=== PATIENT | male | born 1950 | race Caucasian/White ===

== ENCOUNTER → 2016-08-17 | Outpatient (REF) ==
[~2016-08-17] MED LIST: AMBIEN 10MG10 MG PO; ATIVAN 0.50.5 MG/TAB PO; CELEXA 20MG20 MG/TAB PO; CIALIS5 MG PO; DESYREL 50MG50 MG PO; DICLOXACILLIN500 MG PO; FLONASE NASAL S16 GM NAS; FLUTICASON0.05 MG/A1 NS; IBU800 M1 PO; IBUPROFEN800 MG PO; INDOCIN 25MG CA25 MG PO; KLONOPIN WAFE0.25 MG PO; KOMBIGLYZE XR 11 TER PO; LAMICTAL ODT100 MG TL; LEVITRA20 MG PO; MOTRIN 800800 MG/TAB PO; MVI PO; NEURONTIN300 MG/CAP PO; NORCO 325 MG-51 TAB PO; NORCO 325 MG-7.1 TAB PO; PERCOCET 325 MG1 TA2 PO; SEREVENT D0.046 MG/A IH; SEREVENT IH; SEROQUEL 2525 MG/TAB PO; SIMVASTATIN20 MG PO; VICODIN 5/5001 UDTAB PO; VIIBRYD20 MG PO; ZITHROMAX Z PA250 MG PO; ZOCOR 20MG20 MG PO
== END ==
LOC: ZMSC 15:11
DX: Z01.89 Encounter for other specified special examinations (principal)

== ENCOUNTER → 2016-09-03 | Outpatient (REF) | LOC: ZMSC 16:35 | DX: Z01.89 Encounter for other specified special examinations (principal) ==

== ENCOUNTER 2017-04-25 09:55 | Emergency (ER) | payer BC, OTHER ==
[~2017-04-25] VITALS: Ht 177.8 cm; Wt 112.7 kg
[~2017-04-25 09:55] MED LIST changes: -NORCO 325 MG-51 TAB PO
[2017-04-25 10:05] VITALS: BP 129/70; TEMP 98.3
[2017-04-25] MEDS ORDERED: NORCO 325 MG-51 TAB PO (11:46)
[2017-04-25 12:20] VITALS: PULSE 80
== END 2017-04-25 12:23 | disposition home or self-care (01) ==
LOC: COL.ER 09:55
DX: M54.5 Low back pain (principal); G89.29 Other chronic pain; E11.9 Type 2 diabetes mellitus without complications; Z79.84 Long term (current) use of oral hypoglycemic drugs
CPT/HCPCS: J1170; J2360

== ENCOUNTER → 2017-11-14 | Outpatient (CLI) | payer MEDICARE, OTHER ==
[~2017-11-14] MED LIST changes: +NORCO 325 MG-51 TAB PO
== END ==
LOC: COL.PUL 10:00
DX: R06.02 Shortness of breath (principal); G47.34 Idiopathic sleep related nonobstructive alveolar hypoventilation; J43.1 Panlobular emphysema

== ENCOUNTER → 2018-02-07 | Outpatient (CLI) | payer MEDICARE, OTHER ==
[2018-02-07 16:28] LABS: SYNOVIAL FL. MONONUCLEAR 2.9 % (0-75); SYNOVIAL FLUID APPEARANCE BLOODY; SYNOVIAL FLUID COLOR RED; SYNOVIAL FLUID RBC 96000 /mm3 (0-0); SYNOVIAL FLUID WBC 95953 /mm3 (200-600)
== END ==
LOC: ZCOL.LAB 16:04
PROVIDERS: Orthopaedic Surgery
DX: M25.511 Pain in right shoulder (principal)

== ENCOUNTER 2018-02-10 10:09 | Day surgery (SDC) | payer MEDICARE, OTHER ==
[2018-02-10] VITALS (9 sets, daily range): BP systolic 114–129; BP diastolic 68–88; PULSE 78–83; TEMP 97.8–98.5
[~2018-02-10] VITALS: Ht 177.8 cm; Wt 108.2 kg
[2018-02-10] MEDS ORDERED: NORCO 325 MG-101 TAB PO (12:09)
[2018-02-10] MEDS ORDERED: LOTRISONE 0.05%1 CRE TOP (12:10)
[2018-02-10] MEDS ORDERED: NEURONTIN300 MG/CAP PO (12:11)
[2018-02-10] MEDS ORDERED: FLONASEALLERGY NS (12:11)
[2018-02-10] MEDS ORDERED: ATIVAN 0.50.5 MG/TAB PO (12:13)
[2018-02-10] MEDS ORDERED: GLUCOPHAGE1000 MG PO (12:14)
[2018-02-10] MEDS ORDERED: SEROQUEL 2525 MG/TAB PO (12:16)
[2018-02-10] MEDS ORDERED: SEREVENT IH (12:17)
[2018-02-10] MEDS ORDERED: ZOCOR 20MG20 MG PO (12:18)
[2018-02-10] MEDS ORDERED: DESYREL 50MG50 MG PO (12:19)
[2018-02-10] MEDS ORDERED: CIALIS5 MG (12:19)
[2018-02-10] MEDS ORDERED: VIIBRYD40 MG PO (12:20)
[2018-02-10 12:54] LABS: HEMATOCRIT 47.8 % (42.0-52.0); HEMOGLOBIN 15.5 g/dl (13.5-18.0); MEAN CELL VOLUME 92 fl (80.0-100.0); MEAN CORPUSCULAR HEMOGLOBIN 30 pg (27.0-31.0); MEAN CORPUSCULAR HGB CONC 32 g/dl (33.0-37.0); MEAN PLATELET VOLUME 9.9 fl (7.4-10.4); PLATELET COUNT 192 K/mm3 (130-400); REDCELL DISTRIBUTION WIDTH-CV 13.6 % (11.5-14.5)
[2018-02-10 13:05] LABS: C-REACTIVE PROTEIN 8.6 mg/dL (0.0-0.9); CALCIUM 9.4 mg/dL (8.4-10.2); CREATININE, serum 1.75 mg/dL (0.66-1.25); POTASSIUM 4.6 mmol/L (3.4-5.0)
[2018-02-10 13:17] LABS: ERYTHROCYTE SEDIMENTATION RATE 18 mm/hr (0-30)
[2018-02-11 00:02] VITALS: BP 110/50; PULSE 82; TEMP 98.6
[2018-02-11 03:41] VITALS: BP 113/65; PULSE 55; TEMP 98.6
[2018-02-11 07:35] VITALS: BP 116/59; PULSE 74; TEMP 97.9
[2018-02-11 12:00] VITALS: BP 141/77; PULSE 78; TEMP 98.3
== END 2018-02-11 16:37 | disposition home or self-care (01) ==
LOC: SDCO 10:09 → MEDICAL 15:48 → SDCO 02-11 16:37
PROVIDERS: Orthopaedic Surgery
DX: M65.811 Other synovitis and tenosynovitis, right shoulder (principal); M19.90 Unspecified osteoarthritis, unspecified site; F32.9 Major depressive disorder, single episode, unspecified; E11.9 Type 2 diabetes mellitus without complications; E78.00 Pure hypercholesterolemia, unspecified; J44.9 Chronic obstructive pulmonary disease, unspecified; G89.29 Other chronic pain; F41.9 Anxiety disorder, unspecified; S46.011A Strain of muscle(s) and tendon(s) of the rotator cuff of right shoulder, initial encounter; Z79.84 Long term (current) use of oral hypoglycemic drugs; Z79.52 Long term (current) use of systemic steroids; Z90.5 Acquired absence of kidney; Z87.891 Personal history of nicotine dependence
CPT/HCPCS: OP; A4565; C1751; J0690; J0696; J1100; J1885; J2405; J2704; J3010; J3370; J7042; J7050

== ENCOUNTER 2018-03-17 12:54 | Outpatient (CLI) | payer MEDICARE, OTHER ==
[~2018-03-17] VITALS: Ht 177.8 cm; Wt 114.5 kg
[~2018-03-17 12:54] MED LIST changes: +CIALIS5 MG; +FLONASEALLERGY NS; +GLUCOPHAGE1000 MG PO; +LOTRISONE 0.05%1 CRE TOP; +NORCO 325 MG-101 TAB PO; +VIIBRYD40 MG PO
[2018-03-17 13:10] VITALS: BP 125/80; PULSE 68
== END 2018-03-17 16:32 | disposition home or self-care (01) ==
LOC: EUO 12:54
DX: B99.9 Unspecified infectious disease (principal)

== ENCOUNTER 2018-11-02 03:22 | Inpatient (IN) | payer MEDICARE, OTHER ==
[2018-11-02] VITALS (13 sets, daily range): BP systolic 117–163; BP diastolic 66–89; PULSE 64–83; TEMP 97.3–98.4
[~2018-11-02] VITALS: Ht 177.8 cm; Wt 98.4 kg
[~2018-11-02 03:22] MED LIST changes: -CIALIS5 MG
[2018-11-02 03:50] LABS: COLLECTION METHOD CLEAN CATCH
[2018-11-02 03:53] LABS: BASO % 0.3 % (0.0-2.0); EOS # 0.1 (0.0-0.7); GRAN # 6.7 (1.4-6.5); GRAN % 75.5 % (42.2-75.2); HEMATOCRIT 55.5 % (42.0-52.0); LYMPH # 1.4 (1.2-3.4); LYMPH % 15.3 % (20.0-51.0); MEAN CELL VOLUME 92 fl (80.0-100.0); MEAN CORPUSCULAR HEMOGLOBIN 30 pg (27.0-31.0); MEAN CORPUSCULAR HGB CONC 32 g/dl (33.0-37.0); MEAN PLATELET VOLUME 9.5 fl (7.4-10.4); MONO # 0.7 (0.1-0.6); MONO % 7.7 % (1.7-9.3); PLATELET COUNT 144 K/mm3 (130-400); RED BLOOD COUNT 6.02 M/mm3 (4.20-5.60); REDCELL DISTRIBUTION WIDTH-CV 14.1 % (11.5-14.5)
[2018-11-02 03:59] LABS: MUCOUS Present /lpf; PH 5 (5-8); SQUAMOUS EPITHELIAL None Seen /hpf; URINE APPEARANCE Hazy; URINE BACTERIA Moderate /hpf; URINE BILIRUBIN Negative (NEGATIVE); URINE BLOOD 3+ (NEGATIVE); URINE COLOR Yellow; URINE GLUCOSE 2+ (NEGATIVE); URINE KETONE Negative (NEGATIVE); URINE LEUKOCYTE ESTERASE Trace (NEGATIVE); URINE NITRATE Negative (NEGATIVE); URINE PROTEIN(semi-quant) 2+ (NEGATIVE); URINE RBC >50 /hpf; URINE UROBILINOGEN Negative (NEGATIVE); URINE WBC None Seen /hpf
[2018-11-02 04:03] LABS: ALBUMIN 3.7 gm/dL (3.5-5.0); BILIRUBIN,TOTAL 0.8 mg/dL (0.0-1.0); CALCIUM 10.2 mg/dL (8.4-10.2); CREATININE, serum 3.36 (0.66-1.25); POTASSIUM 4.6 mmol/L (3.4-5.0); TOTAL PROTEIN 6.6 gm/dL (6.4-8.2)
[2018-11-02] MEDS ORDERED: GLUCOPHAGE XR500 M1 PO (04:38)
[2018-11-02] MEDS ORDERED: LAMISIL250 M1 (04:40)
--- NOTE | 2018-11-02 06:20 | NUR ---
Arrived per stretcher from ER. Accompanied by ER staff.
--- NOTE | 2018-11-02 10:44 | NUR ---
Patient CONTROL SYSTEMS ENG set up this am with Cecilia RN at bedside shift report. Patient wanting to get rest. His at bedside. Patient now sitting up at edge of bed. Assessment & medrec completed. Consent obtained & patient given education regaurding Stent placement. Patient blood sugar taken, I reviewed with him why he is not receiving his metformin at this time with elevated kideny function. Patient going to shower to pre for OR this afternoon, He remains NPO & educated why
--- NOTE | 2018-11-02 11:49 | NUR ---
FREDI and SW student met with the patient and patient's , Valeri, to discuss discharge plan. The patient lives in [place] with his . He reports independence with ADLs and does not use any DME. The patient's PCP is Dr. Cipriano Last and he receives his medications on [facility]. He reports no difficulties obtaining his meds. The patient does not have advanced directives, but he was interested in obtaining a form for DPOA-HC. SW provided. The patient plans to return home with his upon discharge. No additional needs at this time.
--- NOTE | 2018-11-02 13:07 | NUR ---
Patient to OR with Harriett. Patient prepped with pepcid & LR to gravity. Dangelo drained 150mls.
--- NOTE | 2018-11-02 15:36 | NUR ---
Patient has resturned Post op. He denies pain. Food ordered. aware of plan of care, He will DC home with blanka liang & recheck kidney function in am
--- NOTE | 2018-11-02 17:40 | NUR ---
Patient standing in room, watching TV. Vss on O2. He has tolerated diet, I encouraged water intake over Pepsi intake. Dangelo to DD, urine output has increased. Urine pink tinged. IVF continue post op. His remains at bedside
--- NOTE | 2018-11-02 18:54 | NUR ---
Patient standing watching TV. Denies needs. Bedside report to Cecilia RN
--- NOTE | 2018-11-02 21:22 | NUR ---
Patient standing at bedside, reports he sat in a "squad car" for years and prefers to be out of the bed until he is ready to go to sleep. Asks for Metformin since his blood sugar is elevated. Explained Insulin coverage until the morning after lab work is done, checking his kidney function. Pt grumbles but takes the insulin. Dangelo to BSD with yellow urine draining. SL to right forearm without redness or swelling. Denies need for pain med at this time, does report he will take a pain pill in the morning for his back pain.
--- NOTE | 2018-11-02 22:35 | NUR ---
Patient asking for pain meds for his back. Medicated with Percocet 5/325mg 2 tabs at this time.
[2018-11-03 03:35] VITALS: BP 84/34; PULSE 56; TEMP 98.3
[2018-11-03 04:43] VITALS: BP 106/50; PULSE 57
--- NOTE | 2018-11-03 04:44 | NUR ---
Patient had low B/P reading, recheck by this nurse reveals b/p 106/50 P=57. Has 2300cc of urine output this shift.
[2018-11-03 07:05] LABS: CALCIUM 9.6 mg/dL (8.4-10.2); CREATININE, serum 3.12 (0.66-1.25); POTASSIUM 4.7 mmol/L (3.4-5.0)
[2018-11-03 07:33] VITALS: BP 119/57; PULSE 71; TEMP 97.7
--- NOTE | 2018-11-03 08:30 | NUR ---
PATIENT AMBULATING INDEPENDENTLY WITHIN ROOM UPON ENTRY WITH TELEVISION ON. PATIENT IS A&O. VSS. BOWEL SOUNDS ACTIVE ALL FOUR QUADRANTS. PATIENT TOLERATING DIET WITHOUT COMPLAINTS OF N/V. ABDOMEN IS ROUNDED AND SOFT TO PALPATION. POSITIVE PEDAL PULSES EQUAL BILATERALLY. 1+ PITTING-EDEMA TO FEET BILATERALLY. INT TO RIGHT FOREARM. PATIENT EDUCATED ON COLEMAN CATHETER REMOVAL. PATIENT DENIES ANY NEEDS AT THIS TIME. WILL CONTINUE TO MONITOR.
--- NOTE | 2018-11-03 08:56 | NUR ---
Pts catheter d/c and taken out at 0800. Pt tolerated it well and is up ambulating in pt room
[2018-11-03 11:46] VITALS: BP 122/69; PULSE 80; TEMP 97.8
--- NOTE | 2018-11-03 12:34 | NUR ---
PATIENT'S RIGHT FOREARM INT DC'D BY APARTMENT LEASING CONSULTANT. DISCHARGE INSTRUCTIONS REVIEWED WITH PATIENT AND . ALL QUESTIONS ANSWERED. PATIENT PERSONAL BELONGINGS GATHERED.
--- NOTE | 2018-11-03 12:54 | NUR ---
Pts IV d/c. Pt up in room ambulating
--- NOTE | 2018-11-03 13:06 | NUR ---
PATIENT AMBULATED TO PERSONAL VEHICLE WITH SURGICAL STAFF. PATIENT DISCHARGED.
[2018-11-04] MEDS ORDERED: OMNICEF 300MG300 MG PO (12:35)
== END 2018-11-03 13:06 | disposition home or self-care (01) | DRG 660 ==
LOC: COL.ER 03:22 → SURG 05:04
PROVIDERS: Emergency Medicine; ADMIT Urology
PROC: 0T778DZ Dilation of Left Ureter with Intraluminal Device, Via Natural or Artificial Opening Endoscopic (ICD-10-PCS; principal; 2018-11-02 14:30)
PROC: BT1FZZZ Fluoroscopy of Left Kidney, Ureter and Bladder (ICD-10-PCS; 2018-11-02 14:30)
DX: N20.1 Calculus of ureter (principal); N17.9 Acute kidney failure, unspecified; Z90.5 Acquired absence of kidney; N18.9 Chronic kidney disease, unspecified; Z85.51 Personal history of malignant neoplasm of bladder; I12.9 Hypertensive chronic kidney disease with stage 1 through stage 4 chronic kidney disease, or unspecified chronic kidney disease; E11.22 Type 2 diabetes mellitus with diabetic chronic kidney disease; Z87.891 Personal history of nicotine dependence
CPT/HCPCS: C1769; C2617; J0690; J1100; J1815; J2270; J2405; J2704; J3010; J7030; J7120; Q9967

== ENCOUNTER 2018-11-04 10:56 | Emergency (ER) | payer MEDICARE, OTHER ==
[~2018-11-04] VITALS: Ht 177.8 cm; Wt 113.6 kg
[~2018-11-04 10:56] MED LIST changes: +GLUCOPHAGE XR500 M1 PO; +LAMISIL250 M1
[2018-11-04 11:04] VITALS: TEMP 97.1
[2018-11-04 11:59] LABS: BASO % 0.4 % (0.0-2.0); EOS # 0.1 (0.0-0.7); EOS % 0.7 % (0-4.0); GRAN # 6.2 (1.4-6.5); GRAN % 76.3 % (42.2-75.2); LYMPH # 1.1 (1.2-3.4); LYMPH % 13.7 % (20.0-51.0); MEAN CELL VOLUME 92 fl (80.0-100.0); MEAN CORPUSCULAR HEMOGLOBIN 31 pg (27.0-31.0); MEAN CORPUSCULAR HGB CONC 33 g/dl (33.0-37.0); MEAN PLATELET VOLUME 10.2 fl (7.4-10.4); MONO # 0.7 (0.1-0.6); MONO % 8.7 % (1.7-9.3); PLATELET COUNT 142 K/mm3 (130-400); RED BLOOD COUNT 5.91 M/mm3 (4.20-5.60); REDCELL DISTRIBUTION WIDTH-CV 14.1 % (11.5-14.5)
[2018-11-04 12:00] LABS: HEMATOCRIT 54.6 % (42.0-52.0)
[2018-11-04 12:11] LABS: CALCIUM 9.8 mg/dL (8.4-10.2); CREATININE, serum 2.1 (0.66-1.25); POTASSIUM 4.3 mmol/L (3.4-5.0)
[2018-11-04] MEDS ORDERED: OMNICEF 300MG300 MG PO (12:35)
[2018-11-04 12:40] LABS: COLLECTION METHOD CATHETER
[2018-11-04 12:58] LABS: MUCOUS Present /lpf; SQUAMOUS EPITHELIAL 0-2 /hpf; URINE BACTERIA None Seen /hpf; URINE RBC >50 /hpf
[2018-11-04 13:05] LABS: PH 5 (5-8); URINE APPEARANCE Clear; URINE BILIRUBIN Negative (NEGATIVE); URINE BLOOD 3+ (NEGATIVE); URINE COLOR Amber; URINE GLUCOSE 1+ (NEGATIVE); URINE KETONE Negative (NEGATIVE); URINE LEUKOCYTE ESTERASE Negative (NEGATIVE); URINE NITRATE Positive (NEGATIVE); URINE PROTEIN(semi-quant) 1+ (NEGATIVE)
[2018-11-04 13:23] VITALS: BP 132/79; PULSE 72
== END 2018-11-04 13:40 | disposition home or self-care (01) ==
LOC: COL.ER 10:56
PROVIDERS: Emergency Medicine
DX: N20.0 Calculus of kidney (principal); I10 Essential (primary) hypertension; E11.9 Type 2 diabetes mellitus without complications; Z79.51 Long term (current) use of inhaled steroids; Z87.891 Personal history of nicotine dependence; Z79.84 Long term (current) use of oral hypoglycemic drugs
CPT/HCPCS: J2270; J7030

== ENCOUNTER 2018-11-10 05:36 | Day surgery (SDC) | payer MEDICARE, OTHER ==
[2018-11-10] VITALS (7 sets, daily range): BP systolic 127–145; BP diastolic 63–84; PULSE 70–82; TEMP 98.1–98.4
[~2018-11-10] VITALS: Ht 177.8 cm; Wt 110.5 kg
[~2018-11-10 05:36] MED LIST changes: +OMNICEF 300MG300 MG PO
--- NOTE | 2018-11-10 09:00 | NUR ---
Returns to room 7 per cart from PACU and is awake and alert. Temp 98.5 and room air sats 93% on 2L per nasal cannula. Patient is drinking water and denies pain or nausea. IV fluids infusing and siderails up x2. Call light in reach. Spouse in room.
--- NOTE | 2018-11-10 09:15 | NUR ---
Patient is wanting to sit up on edge of cart. Oxygen removed and siderail down. Denies nausea or feeling light headed or dizzy.
--- NOTE | 2018-11-10 09:30 | NUR ---
IV converted to INT. Eating muffin and drinking water and juice. Has attempted to void per urinal in the room and no urine.
--- NOTE | 2018-11-10 09:40 | NUR ---
Bladder scan done with 263 recorded. Patient has been up walking around in the room.
--- NOTE | 2018-11-10 09:45 | NUR ---
Continues to sip on water and juice. Has eaten second muffin.
--- NOTE | 2018-11-10 10:00 | NUR ---
States that he has ambulated to the bathroom x2 and has not been able to void. Does not feel uncomfortable. Will continue to monitor. Sitting on the edge of the cart.
--- NOTE | 2018-11-10 11:00 | NUR ---
Resting on cart. Denies urge to urinate. Denies pain or nausea. Will continue to monitor. States that he wants one more hour to attmept to urinate then may replace moscoso catheter if needed.
--- NOTE | 2018-11-10 11:40 | NUR ---
Patient states that he has been unable to urinate and wishes to have catheter placed and go home. Bladder scan done and shows 550ml of urine. Informed the patient that Dr. Lara will be notified and will proceed when orders received.
--- NOTE | 2018-11-10 12:00 | NUR ---
Orders received from Dr. Lara and the patient has the option to be taught straight cath or may have moscoso catheter placed. Patient is agreeing to learn straight cath and do this at home.
--- NOTE | 2018-11-10 12:20 | NUR ---
#16 straight catheter done with 600cc's dark indra urine return and noted two small clots. Patient and spouse both verbalize understanding of doing this at home after observing and provided 3 #16 straight cath's, graduate and urinal to measure urine, lubricant and written handout with instructions. Both read instructions and verbalize undestanding of this. Instructed to clean the catheters with soap and water after each use and wash tip of penis with soap and water prior to catheterization.
--- NOTE | 2018-11-10 12:40 | NUR ---
INT needle discontinued and given dismissal instructions. Voices understanding of home and to call Dr. Lara's office in needed or come to the emergency room. Provided office number for questions and concerns.
--- NOTE | 2018-11-10 12:43 | NUR ---
Patient dismissed to home driven by spouse per private vehicle and taken to the front door per wheelchair and assisted into car with instructions in hand.
== END 2018-11-10 12:43 | disposition home or self-care (01) ==
LOC: SDCO 05:36
DX: N20.1 Calculus of ureter (principal); I12.9 Hypertensive chronic kidney disease with stage 1 through stage 4 chronic kidney disease, or unspecified chronic kidney disease; E11.22 Type 2 diabetes mellitus with diabetic chronic kidney disease; N18.9 Chronic kidney disease, unspecified; F32.9 Major depressive disorder, single episode, unspecified; G47.00 Insomnia, unspecified; E23.0 Hypopituitarism; Z90.5 Acquired absence of kidney; J44.9 Chronic obstructive pulmonary disease, unspecified; F41.9 Anxiety disorder, unspecified; G89.29 Other chronic pain; M19.90 Unspecified osteoarthritis, unspecified site; Z85.528 Personal history of other malignant neoplasm of kidney; Z87.891 Personal history of nicotine dependence; Z79.84 Long term (current) use of oral hypoglycemic drugs; Z79.51 Long term (current) use of inhaled steroids
CPT/HCPCS: C1769; C2617; J0690; J2704; J3010; J7030

== ENCOUNTER 2018-11-11 11:52 | Emergency (ER) | payer MEDICARE, OTHER ==
[~2018-11-11] VITALS: Ht 177.8 cm; Wt 111.4 kg
[2018-11-11 11:57] VITALS: TEMP 98.5
[2018-11-11 12:48] LABS: COLLECTION METHOD CATHETER
[2018-11-11 12:55] LABS: MUCOUS Present /lpf; PH 5 (5-8); SQUAMOUS EPITHELIAL None Seen /hpf; URINE APPEARANCE Clear; URINE BACTERIA None Seen /hpf; URINE BILIRUBIN Negative (NEGATIVE); URINE BLOOD 2+ (NEGATIVE); URINE COLOR Yellow; URINE GLUCOSE 3+ (NEGATIVE); URINE KETONE Negative (NEGATIVE); URINE LEUKOCYTE ESTERASE Negative (NEGATIVE); URINE NITRATE Negative (NEGATIVE); URINE PROTEIN(semi-quant) 1+ (NEGATIVE); URINE UROBILINOGEN Negative (NEGATIVE)
[2018-11-11 13:58] VITALS: BP 132/85; PULSE 77
== END 2018-11-11 13:59 | disposition home or self-care (01) ==
LOC: COL.ER 11:52
PROVIDERS: Physician Assistant
DX: R33.9 Retention of urine, unspecified (principal); I10 Essential (primary) hypertension; F41.9 Anxiety disorder, unspecified; E11.42 Type 2 diabetes mellitus with diabetic polyneuropathy; Z96.0 Presence of urogenital implants; Z85.528 Personal history of other malignant neoplasm of kidney; Z87.891 Personal history of nicotine dependence; Z98.890 Other specified postprocedural states; Z79.51 Long term (current) use of inhaled steroids; Z79.84 Long term (current) use of oral hypoglycemic drugs

== ENCOUNTER 2019-02-27 07:25 | Inpatient (IN) | payer MEDICARE, OTHER ==
[~2019-02-27] VITALS: Ht 177.8 cm; Wt 113.3 kg
[2019-02-27 08:06] LABS: BASO % 0.3 % (0.0-2.0); EOS # 0.1 (0.0-0.7); EOS % 0.5 % (0-4.0); GRAN # 7.4 (1.4-6.5); GRAN % 80.6 % (42.2-75.2); HEMOGLOBIN 17.5 g/dl (13.5-18.0); LYMPH % 10.4 % (20.0-51.0); MEAN CELL VOLUME 94 fl (80.0-100.0); MEAN CORPUSCULAR HEMOGLOBIN 30 pg (27.0-31.0); MEAN CORPUSCULAR HGB CONC 32 g/dl (33.0-37.0); MEAN PLATELET VOLUME 10.4 fl (7.4-10.4); MONO # 0.7 (0.1-0.6); MONO % 7.9 % (1.7-9.3); PLATELET COUNT 144 K/mm3 (130-400); RED BLOOD COUNT 5.78 M/mm3 (4.20-5.60); REDCELL DISTRIBUTION WIDTH-CV 15.2 % (11.5-14.5)
[2019-02-27 08:07] LABS: HEMATOCRIT 54.4 % (42.0-52.0)
[2019-02-27 08:16] LABS: C-REACTIVE PROTEIN 1.7 mg/dL (0.0-0.9); CALCIUM 9.3 mg/dL (8.4-10.2); CREATININE, serum 1.85 (0.66-1.25); POTASSIUM 4.7 mmol/L (3.4-5.0)
[2019-02-27 08:26] LABS: ERYTHROCYTE SEDIMENTATION RATE 1 mm/hr (0-30)
[2019-02-27] MEDS ORDERED: DESYREL 50MG50 MG PO (08:26)
[2019-02-27 09:12] LABS: SYNOVIAL FL. MONONUCLEAR 4.9 % (0-75); SYNOVIAL FLUID APPEARANCE HAZY; SYNOVIAL FLUID COLOR YELLOW; SYNOVIAL FLUID RBC 3000 /mm3 (0-0); SYNOVIAL FLUID WBC 105055 /mm3 (200-600)
--- NOTE | 2019-02-27 11:22 | NUR ---
Patient arrives to medical room 314 via ED cart. Prior report recieved from STEVE Bennett. Patient transferred to bed and kept on 2L per [place]. Dr. Mayorga notified of patient arrival. Assessment and vitals as charted. Care assumed.
--- NOTE | 2019-02-27 11:40 | NUR ---
Dr. Mayorga rounds at this time. Orders as entered CPOE.
[2019-02-27 11:43] VITALS: BP 125/81; PULSE 76; TEMP 98.8
[2019-02-27] MEDS ORDERED: LAMISIL250 M1 PO (11:51)
[2019-02-27] MEDS ORDERED: VIIBRYD20 MG PO (11:51)
[2019-02-27] MEDS ORDERED: MUCINEX1200 MG PO (11:52)
[2019-02-27] MEDS ORDERED: 00186-0370-20 IH (11:52)
[2019-02-27] MEDS ORDERED: PREVIDENT5000PLUS DT (11:53)
[2019-02-27 12:04] LABS: ALBUMIN 3.9 gm/dL (3.5-5.0); BILIRUBIN UNCONJUGATED 0.7 mg/dL (0.0-1.1); BILIRUBIN,DIRECT 0.2 mg/dL (0.0-0.4)
[2019-02-27 15:58] VITALS: BP 124/76; PULSE 74; TEMP 98.3
--- NOTE | 2019-02-27 16:07 | NUR ---
Patient consistently rates pain 8-10/10 despite sleeping between disturbances. Patient falls asleep mid conversation but wakes with verbal stimulation. Care ongoing.
[2019-02-27 19:25] VITALS: BP 136/77; PULSE 79; TEMP 99.7
--- NOTE | 2019-02-27 19:57 | NUR ---
Resting in bed. assessment complete. Lungs clear. Heart sounds normal. Bowels active x4. Pulses strong throughout. No edema noted. Left ankle swelling present. Reports 7/10 pain currently. Recently received norco. INT right forearm without complications. Denies needs at this time. Call light in reach.
--- NOTE | 2019-02-27 21:50 | NUR ---
Resting in bed. Denies pain at this time. called. Updated patient on patient this evening. Patient sleeping, received x1 dose of norco. denies other questions.
[2019-02-27 23:12] VITALS: BP 125/86; PULSE 75; TEMP 97.3
[2019-02-28] VITALS (11 sets, daily range): BP systolic 106–131; BP diastolic 47–77; PULSE 74–96; TEMP 97.2–99.4
--- NOTE | 2019-02-28 00:01 | NUR ---
Resting in bed. Denies pain at this time. Denies needs. Call light in reach.
--- NOTE | 2019-02-28 02:47 | NUR ---
Rating pain 9/10. Provided with PRN norco and ice. Able to move with difficulty. Denies needs at this time. Call light in reach.
--- NOTE | 2019-02-28 05:39 | NUR ---
Patient required x2 doses of norco throughout night for left ankle pain. Otherwise uneventful. Patient slept well with ice and elevation on left ankle. Resting this AM. Call light in reach.
[2019-02-28 06:11] LABS: BASO % 0.3 % (0.0-2.0); EOS # 0.1 (0.0-0.7); EOS % 0.7 % (0-4.0); GRAN % 75.2 % (42.2-75.2); HEMATOCRIT 51.8 % (42.0-52.0); HEMOGLOBIN 16.2 g/dl (13.5-18.0); LYMPH # 0.9 (1.2-3.4); LYMPH % 13.9 % (20.0-51.0); MEAN CELL VOLUME 97 fl (80.0-100.0); MEAN CORPUSCULAR HEMOGLOBIN 30 pg (27.0-31.0); MEAN CORPUSCULAR HGB CONC 31 g/dl (33.0-37.0); MEAN PLATELET VOLUME 10.5 fl (7.4-10.4); MONO # 0.6 (0.1-0.6); MONO % 9.3 % (1.7-9.3); PLATELET COUNT 124 K/mm3 (130-400); RED BLOOD COUNT 5.33 M/mm3 (4.20-5.60); REDCELL DISTRIBUTION WIDTH-CV 15.3 % (11.5-14.5)
[2019-02-28 06:27] LABS: CALCIUM 9.2 mg/dL (8.4-10.2); CREATININE, serum 1.93 (0.66-1.25); POTASSIUM 4.8 mmol/L (3.4-5.0)
--- NOTE | 2019-02-28 06:32 | NUR ---
INT right forearm leaking, changed to another area on right forearm. in room. Linens changed, grown changed. Patient unhappy with ortho docs. Stating they need to make a plan and "figure it out." No questions for this nurse. Call light in reach.
--- NOTE | 2019-02-28 07:09 | NUR ---
Report given to STEVE Rivera
--- NOTE | 2019-02-28 10:00 | NUR ---
Patient is upset that Dr Gonzalez has not decided on surgery yet. Explained he stated he would be back this afternoon to decide. Patient is upset about not being able to eat or drink. Explained that he needs to wait because if he eats he will have to wait another day to have surgery. Patient verbalized understanding. No other changes at this time. Call light within reach.
--- NOTE | 2019-02-28 11:59 | NUR ---
Initial visit; Patient anitraggy (he said), but thanked Logistical Engineer for telling him to rest well.
--- NOTE | 2019-02-28 15:52 | NUR ---
SW met with patient to discuss discharge planning. Patient lives independently at home with his . Patient's PCP is Dr Last and he obtains prescriptions from [facility]. Patient is independent with all ADLs and does not use any DME or home health services. Patient was provided a DPOA-HC form. Patient reports he would like to discuss it with his nhung. SW will follow up in the morning.
--- NOTE | 2019-02-28 16:40 | NUR ---
Patient is going down for his procedure. Consent signed and on the chart. He is being taken to OR via the bed. Patients family aware patient is going for his procedure, nobody is with him at this time. No other changes at this time.
--- NOTE | 2019-02-28 19:45 | NUR ---
Arrived to medical floor from PACU. Kera stated patient having apnea with difficulty maintaining O2 saturations. Patient on 8 liters when returned to room. Respiratory in room for breathing treatment. Oxygen decreased to 4 liters. patient mainitaining at 93%. Will monitor closely. Left leg covered with dressing and hunter wrap. Lungs clear. Heart sounds normal. Bowels active. Pulses strong throughout.
--- NOTE | 2019-02-28 21:05 | NUR ---
Patient continues to have apneic episodes greater than 30 seconds. Reminded to breathe. Spoke with PAWEL Baez, placed order for bipap at this time. Will update hospitalist.
[2019-02-28 21:26] LABS: ARTERIAL BLD GAS O2 SATURATION 93.1 % (92-100); ARTERIAL BLD GAS TCO2 CT 29.6; ARTERIAL BLOOD GAS BASE EXCESS -1.1 (-2-2); ARTERIAL BLOOD GAS HCO3 27.7 meq/L (22-26); ARTERIAL BLOOD GAS PCO2 62.6 mmHg (35-45); ARTERIAL BLOOD GAS PO2 75.2 mmHg (80-100); ARTERIAL BLOOD GAS pH 7.26 (7.35-7.45)
--- NOTE | 2019-02-28 21:56 | NUR ---
Patient not tolerating bipap mask well. Cleared with Debra to give patient PRN ativan.
--- NOTE | 2019-02-28 22:30 | NUR ---
patient awake maintaining respirations without difficulty. Refusing bipap at this time. Removed oxygen tubing. Patient at 87% without oxygen on. Educated patient to place nasal cannula on. Patient agreed. Patient on 4 liters nasal cannula.
--- NOTE | 2019-02-28 23:05 | NUR ---
Reports 6/10 left ankle pain. Patient awake and alert. Provided with PRN norco at this time.
--- NOTE | 2019-02-28 23:53 | NUR ---
ZHANE Richardson updated. Added order for ABG, chest xray, and bipap. Patient started on bipap.
--- NOTE | 2019-02-28 23:57 | NUR ---
Patient 94% on 4 liters via nasal cannula while asleep. Maintaining adequate respirations without periods of apnea at this time.
--- NOTE | 2019-03-01 03:18 | NUR ---
Monitored patient closely over last several hours. Patient resting well at this time. Has apneic episodes of about 18 seconds then continues to breathe without reminder. Oxygen saturation drops to 88% and increases to 92% with respiration. Will continue to monitor.
[2019-03-01 03:44] VITALS: BP 116/59; PULSE 84; TEMP 98.4
[2019-03-01 06:06] LABS: ARTERIAL BLD GAS O2 SATURATION 94.2 % (92-100); ARTERIAL BLD GAS TCO2 CT 31.3; ARTERIAL BLOOD GAS BASE EXCESS 1.8 (-2-2); ARTERIAL BLOOD GAS HCO3 29.5 meq/L (22-26); ARTERIAL BLOOD GAS PCO2 58.1 mmHg (35-45); ARTERIAL BLOOD GAS PO2 72.9 mmHg (80-100); ARTERIAL BLOOD GAS pH 7.32 (7.35-7.45)
--- NOTE | 2019-03-01 06:10 | NUR ---
Patient had uneventful rest of night. ABGs done this AM. Resting in bed with at bedside. Call light in reach.
--- NOTE | 2019-03-01 06:58 | NUR ---
Report given to STEVE George
[2019-03-01 07:21] VITALS: BP 122/65; PULSE 82; TEMP 97.9
[2019-03-01 08:52] LABS: BASO % 0.2 % (0.0-2.0); EOS % 0.4 % (0-4.0); GRAN % 75.4 % (42.2-75.2); HEMATOCRIT 51.6 % (42.0-52.0); HEMOGLOBIN 16.3 g/dl (13.5-18.0); LYMPH # 0.8 (1.2-3.4); MEAN CELL VOLUME 96 fl (80.0-100.0); MEAN CORPUSCULAR HEMOGLOBIN 30 pg (27.0-31.0); MEAN CORPUSCULAR HGB CONC 32 g/dl (33.0-37.0); MEAN PLATELET VOLUME 10.3 fl (7.4-10.4); MONO # 0.5 (0.1-0.6); MONO % 8.8 % (1.7-9.3); PLATELET COUNT 133 K/mm3 (130-400); RED BLOOD COUNT 5.37 M/mm3 (4.20-5.60); REDCELL DISTRIBUTION WIDTH-CV 14.9 % (11.5-14.5)
--- NOTE | 2019-03-01 08:55 | NUR ---
Pt sleeping upon entry, easily awakened, no C/O pain at this time, shift assessments complete, left Pt call light in reach, bed in lowest position.
[2019-03-01 09:01] LABS: CREATININE, serum 1.63 (0.66-1.25); POTASSIUM 4.7 mmol/L (3.4-5.0)
--- NOTE | 2019-03-01 09:55 | NUR ---
PT LYING IN BED ON ROOM AIR. STATED HE ONLY WEARS O2 @ NOC. SPO2 87%
[2019-03-01 11:23] VITALS: BP 138/70; PULSE 76; TEMP 97.7
[2019-03-01] MEDS ORDERED: CEPHALEXIN500 M1 PO (11:30)
--- NOTE | 2019-03-01 13:19 | NUR ---
FREDI met with patient about new O2 needs. Patient reports he has O2 through [facility]. FREDI faxed an updated O2 order to [facility]. Patient will discharge later today.
--- NOTE | 2019-03-01 16:19 | NUR ---
Pt discharged to home, escorted to entrance, left with spouse by private auto.
== END 2019-03-01 16:20 | disposition home or self-care (01) | DRG 492 ==
LOC: COL.ER 07:25 → MEDICAL 10:05 → COL.ER 10:45 → MEDICAL 11:50
PROVIDERS: Emergency Medicine; Nurse Practitioner; Orthopaedic Surgery; Physician Assistant; ADMIT Hospitalist
PROC: 3E1U38X Irrigation of Joints using Irrigating Substance, Percutaneous Approach, Diagnostic (ICD-10-PCS; 2019-02-28)
PROC: 0SBG4ZZ Excision of Left Ankle Joint, Percutaneous Endoscopic Approach (ICD-10-PCS; principal; 2019-02-28 16:00)
DX: M00.9 Pyogenic arthritis, unspecified (principal); J96.21 Acute and chronic respiratory failure with hypoxia; M25.472 Effusion, left ankle; M65.872 Other synovitis and tenosynovitis, left ankle and foot; E78.5 Hyperlipidemia, unspecified; N18.3 Chronic kidney disease, stage 3 (moderate); E11.22 Type 2 diabetes mellitus with diabetic chronic kidney disease; Z90.5 Acquired absence of kidney; Z85.528 Personal history of other malignant neoplasm of kidney; G89.29 Other chronic pain; M54.9 Dorsalgia, unspecified; J44.9 Chronic obstructive pulmonary disease, unspecified; Z99.81 Dependence on supplemental oxygen; G47.00 Insomnia, unspecified; F41.8 Other specified anxiety disorders; M13.872 Other specified arthritis, left ankle and foot
CPT/HCPCS: 99222-AI; 99232-AI; 99239; A4216; A9284; J0171; J0690; J0692; J1170; J1644; J1815; J2060; J2270; J2370; J2405; J2704; J3010; J3370; J7030; J7050

== ENCOUNTER → 2020-09-03 | Outpatient (CLI) | payer MEDICARE, OTHER ==
[~2020-09-03] MED LIST changes: +00186-0370-20 IH; +CEPHALEXIN500 M1 PO; +DITROPAN XL10 MG PO; +GLUCOTROL 5M5 MG/TAB PO; +LAMISIL250 M1 PO; +METROGEL1% TOP; +MUCINEX1200 MG PO; +PREVIDENT5000PLUS DT; +ROCEPHIN 2GM VIAL21 IJ; +ROXICODONE 55 MG/TAB PO; +SEPTRA DS 8001 TAB PO; +ULTRAM 50MG TAB50 MG PO
== END ==
LOC: ZCOL.LAB 18:36
DX: Z01.89 Encounter for other specified special examinations (principal)

== ENCOUNTER 2021-10-05 13:56 | Inpatient (IN) | payer MEDICARE, OTHER ==
[~2021-10-05] VITALS: Ht 177.8 cm; Wt 111.6 kg
[2021-10-20] VITALS (10 sets, daily range): BP systolic 100–139; BP diastolic 59–86; PULSE 68–86; TEMP 98–99.1
[2021-10-20] MEDS ORDERED: LAMISIL250 M1 PO (12:04)
[2021-10-20] MEDS ORDERED: ULTRAM 50MG TAB50 MG PO (12:04)
[2021-10-20] MEDS ORDERED: ATIVAN 0.50.5 MG/TAB PO (12:08)
[2021-10-20] MEDS ORDERED: GLUCOPHAGE XR500 M1 PO (12:09)
[2021-10-20] MEDS ORDERED: ROXICODONE 55 MG/TAB PO (12:10)
[2021-10-20 17:52] LABS: BASO % 0.2 % (0.0-2.0); EOS % 0.2 % (0.0-4.0); GRAN # 9.5 K/mm3 (1.4-6.5); GRAN % 89.9 % (42.2-75.2); HEMATOCRIT 47.4 % (42.0-52.0); HEMOGLOBIN 14.4 g/dl (13.5-18.0); LYMPH # 0.6 K/mm3 (1.2-3.4); LYMPH % 5.9 % (20.0-51.0); MEAN CELL VOLUME 88 fl (80.0-100.0); MEAN CORPUSCULAR HEMOGLOBIN 27 pg (27-31); MEAN CORPUSCULAR HGB CONC 30 g/dl (33.0-37.0); MEAN PLATELET VOLUME 10.3 fl (7.4-10.4); MONO # 0.4 K/mm3 (0.1-0.6); MONO % 3.4 % (1.7-9.3); PLATELET COUNT 187 K/mm3 (130-400); RED BLOOD COUNT 5.42 M/mm3 (4.20-5.60); REDCELL DISTRIBUTION WIDTH-CV 16.5 % (11.5-14.5)
[2021-10-20 18:09] LABS: CALCIUM 8.7 mg/dL (8.4-10.2); CREATININE, serum 2.61 mg/dL (0.72-1.25)
[2021-10-20 18:20] LABS: POTASSIUM 5.9 mmol/L (3.5-4.5)
--- NOTE | 2021-10-20 18:59 | NUR ---
Pt. accepted from PACU. is at bedside. Pt. has 6 abdominal incisions. 5 to lower abd. and covered with bandaids - CDI. Incision to RUQ is covered with an airstrip dressing - minimal amount of bloody drainage noted. Dangelo catheter patent to drainage - urine is clear and yellow. Pt. remains on O2 at 6L via oxi-mask. Patient reporting pain. Pt. received diluadid in PACU around 1805. Pt. remains drowsy but arouses easily from sleep
--- NOTE | 2021-10-20 19:10 | NUR ---
RECEIVED CHANGE OF SHIFT REPORT FROM DAY SHIFT RN.
--- NOTE | 2021-10-20 19:15 | NUR ---
SEE MAR FOR PAIN MEDS GIVEN. DENIES NAUSEA.
[2021-10-21] VITALS (7 sets, daily range): BP systolic 97–134; BP diastolic 36–73; PULSE 73–89; TEMP 98–98.6
--- NOTE | 2021-10-21 07:05 | NUR ---
CHANGE OF SHIFT REPORT GIVEN TO DAY SHIFT RNDONATO.
--- NOTE | 2021-10-21 09:15 | NUR ---
SW met with the patient to discuss discharge plan. The patient lives in [place] with his , Valeri (ph#[phone]). He reports independence with ADLs and has a cane and walker. The patient's PCP is Dr. Cpiriano Last and he receives his medications on [place] for any maintence meds and from [facility] for anything that is one time. The patient does not have a DPOA-HC in EMR, but he states that he has the forms and filled out, he just needs to get it notarized. He states that he is designating his . The patient plans on returning home with his upon discharge. No additional needs at this time. *Discharge plan: home with *
--- NOTE | 2021-10-21 09:28 | NUR ---
Initial visit; Patient thanked Scale Shooter for looking in on him and praying with him for a thorough recovery. Patient in pain though feels as if there will be an end to it and he will move on from it.
[2021-10-21 12:28] LABS: BASO % 0.3 % (0.0-2.0); GRAN # 9.4 K/mm3 (1.4-6.5); GRAN % 83.7 % (42.2-75.2); HEMATOCRIT 42.5 % (42.0-52.0); HEMOGLOBIN 12.8 g/dl (13.5-18.0); LYMPH % 8.8 % (20.0-51.0); MEAN CELL VOLUME 88 fl (80.0-100.0); MEAN CORPUSCULAR HEMOGLOBIN 26 pg (27-31); MEAN CORPUSCULAR HGB CONC 30 g/dl (33.0-37.0); MONO # 0.8 K/mm3 (0.1-0.6); MONO % 6.9 % (1.7-9.3); PLATELET COUNT 158 K/mm3 (130-400); RED BLOOD COUNT 4.84 M/mm3 (4.20-5.60); REDCELL DISTRIBUTION WIDTH-CV 16.2 % (11.5-14.5)
[2021-10-21 15:11] LABS: BILIRUBIN,TOTAL 0.6 mg/dL (0.2-1.2); CALCIUM 8.7 mg/dL (8.4-10.2); CREATININE, serum 3.22 mg/dL (0.72-1.25); POTASSIUM 4.4 mmol/L (3.5-4.5); TOTAL PROTEIN 6.4 gm/dL (6.2-8.1)
--- NOTE | 2021-10-21 18:23 | NUR ---
COLEMAN REMOVED AT 1814
--- NOTE | 2021-10-21 19:00 | NUR ---
RECEIVED CHANGE OF SHIFT REPORT FROM DAY SHIFT RN. PATIENT UP IN CHAIR WITH PRESENT DURING REPORT. CALL LIGHT WITHIN REACH. DENIES ANY NEEDS DURING REPORT.
[2021-10-22 03:36] VITALS: BP 107/48; PULSE 84; TEMP 98.8
--- NOTE | 2021-10-22 04:34 | NUR ---
PATIENT UP IN ROOM INDEPENDENTLY, REFUSED SCDs.
[2021-10-22 05:47] LABS: BASO % 0.1 % (0.0-2.0); EOS % 0.1 % (0.0-4.0); GRAN # 7.4 K/mm3 (1.4-6.5); GRAN % 85.4 % (42.2-75.2); LYMPH # 0.8 K/mm3 (1.2-3.4); LYMPH % 8.9 % (20.0-51.0); MEAN CELL VOLUME 87 fl (80.0-100.0); MEAN CORPUSCULAR HEMOGLOBIN 27 pg (27-31); MEAN CORPUSCULAR HGB CONC 31 g/dl (33.0-37.0); MEAN PLATELET VOLUME 10.3 fl (7.4-10.4); MONO # 0.5 K/mm3 (0.1-0.6); MONO % 5.3 % (1.7-9.3); PLATELET COUNT 124 K/mm3 (130-400); RED BLOOD COUNT 4.12 M/mm3 (4.20-5.60); REDCELL DISTRIBUTION WIDTH-CV 16.1 % (11.5-14.5)
[2021-10-22 05:55] LABS: HEMATOCRIT 35.9 % (42.0-52.0)
[2021-10-22 06:01] LABS: CALCIUM 8.4 mg/dL (8.4-10.2); CREATININE, serum 2.87 mg/dL (0.72-1.25); POTASSIUM 4.8 mmol/L (3.5-4.5)
--- NOTE | 2021-10-22 07:16 | NUR ---
CHANGE OF SHIFT REPORT GIVEN TO DAY SHIFT RNLIDYA.
[2021-10-22 07:41] VITALS: BP 126/67; PULSE 99; TEMP 98
--- NOTE | 2021-10-22 10:06 | NUR ---
PT SITTING ON EDGE OF BED, TALKING TO FAMILY ON HIS CELLPHONE. PT STATES THAT HE CONTINUES TO HAVE PAIN IN HIS ABDOMEN, ESPECIALLY WHEN HE COUGHS. PT IS ENCOURAGED TO USE PILLOW TO BRACE AGAINST HIS ABDOMEN, VERBALIZES UNDERSTANDING. PT DENIES NEEDS, CALL LIGHT WITHIN REACH.
--- NOTE | 2021-10-22 10:45 | NUR ---
PT AMBULATING IN HALLS WITH WALKER, REPORTS HAVING HAD A BM.
[2021-10-22 12:27] VITALS: BP 106/67; PULSE 91; TEMP 98.4
--- NOTE | 2021-10-22 12:37 | NUR ---
PT EATING LUNCH IN CHAIR, FAMILY IS IN ROOM. PT STATES THAT ABDOMINAL PAIN HAS INCREASED, ROXICODONE ADMINISTERED. PT DENIES OTHER NEEDS. RESPIRATIONS UNLBAORED. CALL LIGHT WITHIN REACH.
[2021-10-22 15:52] VITALS: BP 116/57; PULSE 76; TEMP 98.4
--- NOTE | 2021-10-22 18:04 | NUR ---
DISCHARGE INSTRUCTIONS ET EDUCATION GIVEN TO PT ET PT'S . BOTH DEMONSTRATE UNDERSTANDING. IV REMOVED FROM LEFT FA, CATHETER TIP INTACT. PT'S LARGE INCISION ON RIGHT UPPER QUADRANT IS OPEN TO AIR, DRESSING REMOVED BY DR. RIVERA. VAMSHI INTACT ET EDGES WELL APPROXIMATED. PT IS ESCORTED OUT VIA WC WITH ET PCT ZEYAD. PT BELONGINGS WITH PT.
== END 2021-10-22 17:40 | disposition home or self-care (01) | DRG 331 ==
LOC: INPTSU 10-20 10:33 → SURG 10-20 10:33
PROVIDERS: ADMIT Surgery
PROC: 8E0W4CZ Robotic Assisted Procedure of Trunk Region, Percutaneous Endoscopic Approach (ICD-10-PCS; 2021-10-20)
PROC: 0DTU0ZZ Resection of Omentum, Open Approach (ICD-10-PCS; 2021-10-20)
PROC: 0DTH0ZZ Resection of Cecum, Open Approach (ICD-10-PCS; 2021-10-20)
PROC: 0DTF4ZZ Resection of Right Large Intestine, Percutaneous Endoscopic Approach (ICD-10-PCS; principal; 2021-10-20 12:30)
DX: K63.89 Other specified diseases of intestine (principal); E78.00 Pure hypercholesterolemia, unspecified; F32.A Depression, unspecified; I12.9 Hypertensive chronic kidney disease with stage 1 through stage 4 chronic kidney disease, or unspecified chronic kidney disease; N18.9 Chronic kidney disease, unspecified; E11.22 Type 2 diabetes mellitus with diabetic chronic kidney disease; G47.00 Insomnia, unspecified; J44.9 Chronic obstructive pulmonary disease, unspecified; Z85.528 Personal history of other malignant neoplasm of kidney; Z99.81 Dependence on supplemental oxygen
CPT/HCPCS: A4314; A9284; J0690; J1100; J1170; J1650; J1815; J1940; J2250; J2405; J2704; J3010; J7030; J7120

== ENCOUNTER 2021-10-25 21:52 | Inpatient (IN) | payer MEDICARE, OTHER ==
[~2021-10-25] VITALS: Ht 177.8 cm; Wt 112.1 kg
[2021-10-25 23:06] LABS: BASO % 0.3 % (0.0-2.0); EOS # 0.1 K/mm3 (0.0-0.7); EOS % 1.1 % (0.0-4.0); GRAN # 7.7 K/mm3 (1.4-6.5); GRAN % 82.4 % (42.2-75.2); HEMOGLOBIN 11.1 g/dl (13.5-18.0); LYMPH # 0.8 K/mm3 (1.2-3.4); LYMPH % 8.3 % (20.0-51.0); MEAN CELL VOLUME 87 fl (80.0-100.0); MEAN CORPUSCULAR HEMOGLOBIN 27 pg (27-31); MEAN CORPUSCULAR HGB CONC 31 g/dl (33.0-37.0); MEAN PLATELET VOLUME 10.4 fl (7.4-10.4); MONO # 0.7 K/mm3 (0.1-0.6); MONO % 7.5 % (1.7-9.3); PLATELET COUNT 204 K/mm3 (130-400); RED BLOOD COUNT 4.16 M/mm3 (4.20-5.60)
[2021-10-25 23:08] LABS: HEMATOCRIT 36.1 % (42.0-52.0)
[2021-10-25 23:15] LABS: INR 1.3 (0.8-3.0); PROTHROMBIN TIME 14.3 SECONDS (9.7-12.8)
[2021-10-25 23:22] LABS: ALBUMIN 2.2 gm/dL (3.4-4.8); BILIRUBIN,TOTAL 0.6 mg/dL (0.2-1.2); CALCIUM 9.3 mg/dL (8.4-10.2); CREATININE, serum 2.14 mg/dL (0.72-1.25); POTASSIUM 4.6 mmol/L (3.5-4.5); TOTAL PROTEIN 6.1 gm/dL (6.2-8.1)
[2021-10-26] VITALS (12 sets, daily range): BP systolic 95–162; BP diastolic 35–95; PULSE 59–87; TEMP 97.5–99
[2021-10-26 00:01] LABS: COLLECTION METHOD CLEAN CATCH
[2021-10-26 00:07] LABS: MUCOUS Present (NOT PRESENT); PH 5 (5-8); SQUAMOUS EPITHELIAL None Seen /hpf (0-10); URINE APPEARANCE Hazy (CLEAR/HAZY); URINE BACTERIA None Seen /hpf (NONE SEEN); URINE BILIRUBIN Negative (NEGATIVE); URINE BLOOD 2+ (NEGATIVE); URINE COLOR Yellow (YELLOW); URINE GLUCOSE 1+ (NEGATIVE); URINE KETONE Negative (NEGATIVE); URINE LEUKOCYTE ESTERASE Negative (NEGATIVE); URINE NITRATE Negative (NEGATIVE); URINE PROTEIN(semi-quant) 2+ (NEGATIVE); URINE RBC 0-2 /hpf (0-2); URINE UROBILINOGEN Negative (NEGATIVE)
--- NOTE | 2021-10-26 02:30 | NUR ---
PATIENT ARRIVED TO ROOM 310 FROM THE ER AT THIS TIME. PATIENT ABLE TO AMBULATE TO THE BED WITH A WALKER. PATIENT REPORTEING PAIN LEVEL AN 8/10 IN HIS ABDOMEN AT THIS TIME. PATIENT AND ORIENTED TO ROOM. VANCO INFUSING AT THIS TIME. NO REQUESTS OR CONCERNS VERBALIZED BY PATIENT OR AT THIS TIME V/V STABLE.
--- NOTE | 2021-10-26 10:48 | NUR ---
pony worker met with patient to discuss discharge plan. Patient lives at home with his Valeri [phone] in [place]. Patient is independent with his ADL's at home and utilizes a cane to assist with ambulation. Patient is on 2L of [place] oxygen at home managed through [facility]. PCP is Dr. Last and he uses [facility] for medicatons with no cost difficulty. Patient reports that he does have a DPOA-HC established listing his but that "it's not notarized". Phone call placed to Dr. Last's office to inquire if they have a copy on file. Request made that if they do a copy be faxed to the medical unit. Patient is planning on returning home with his once medically ready. Discharge plan: Home with spouse.
--- NOTE | 2021-10-26 13:02 | NUR ---
PT ALERT AND ORIENTED THIS MORNING. REPORTS 8/10 PAIN MULTIPLE TIMES THROUGHOUT THE MORNING. PRN MORPHINE X1 AND PRN DILAUDED X1 ADMINISTERED FOR PAIN. PT REPORTS FEELING AGITATED. CALLED DR ARBOLEDA TO HAVE PT'S PRN ATIVAN .5 MG ORDERED. ATIVAN ADMINISTERED. MORNING ASSESSMENT COMPLETED. PT CONTINUES TO HAVE FLUIDS RUNNING. AWAITING PROCEDURE. REMAINS NPO. VITALS REMAIN STABLE. WILL CONTINUE TO MONITOR.
--- NOTE | 2021-10-26 14:40 | NUR ---
PT TAKEN OFF UNIT FOR PROCEDURE
--- NOTE | 2021-10-26 16:13 | NUR ---
Message received from Dr. Last's RN. They do not have a copy of the patient's DPOA_HC on file at their office.
--- NOTE | 2021-10-26 17:05 | NUR ---
RECEIVED PT FROM PACU. VITALS STABLE. ASSESSED SITE AND DRAINAGE. WILL CONTINUE TO MONITOR. PT PERSISTENT ABOUT SITTING UP ON SIDE OF BED. PT IS NOW SITTING UP WITH BED ALARM ON AND AT BEDSIDE.
--- NOTE | 2021-10-26 17:50 | NUR ---
vitals wnl .abdominal site clean, dry and intact. drainage remains within the drawn borders. will continue to monitor.
--- NOTE | 2021-10-26 19:35 | NUR ---
PT CONTINUES ON BED REST. FLUIDS RUNNING AT 125 ML/HR. ABDOMINAL DRESSING CLEAN AND DRY AND DRAINAGE REMAINS IN THE DRAWN BORDERS. MORE DRAINAGE HAS FLOWED INTO THE SHIKHA DRAIN. DRAINAGE IS RED. PT STILL COMPLAINING OF ABDOMINAL PAIN. TYLENOL ADMINISTERED. ALERT AND ORIENTED. VITAL SIGNS STABLE. BLOOD SUGAR WAS 89. PT ATE DINNER AND IS NOW RESTING. PT REPORTS NO PAIN. NO CONCERNS AT THIS TIME.
[2021-10-27 00:08] VITALS: BP 100/40; PULSE 68; TEMP 98.1
--- NOTE | 2021-10-27 00:11 | NUR ---
ON CHECKUP PT DRESSING HAS INCREASED BLEEDING MARKINGS, THIS NURSE OUTLINED AND HAD CHARGE NURSE TAKE A LOOK. VSS. PT CONTINUES TO REPORT PAIN TO SITE 01/15. PT ABDOMEN VERY DISTENDED. THIS NURSE WILL CONTINUE TO CLOSELY MONITOR.
[2021-10-27 03:06] VITALS: BP 104/55; PULSE 67; TEMP 98.1
--- NOTE | 2021-10-27 03:53 | NUR ---
UPON 2 HR RECHECK PT ABDOMINAL DRESSING BLOOD DRAINAGE INCREASED BY A VERY SMALL/SCANT AMOUNT OF SATURATION. THUS FAR 125CC BRIGHT RED BLOOD DRAINED FROM RADHA. VSS. ABDOMEN SOFT. NURSE WILL CONTINUE TO MONITOR.
--- NOTE | 2021-10-27 05:34 | NUR ---
AT THIS TIME RADHA DRAIN EMPTY, (125CC DRAINED THIS ENTIRE SHIFT) SEE PREVIOUS NOTES FOR DRESSING SATURATION, ABDOMEN REMAINS SOFT, INCREASED SATURATION NOTED ON DRESSING. VSS. SYSTOLIC REMAINS SOFT ITS BEEN TRENDING SINCE BEGINING OF THIS SHIFT. ALL MEDICATIONS ADMINSITERED ORDERD. PT EXPRESSES NO ADDITIONAL NEEDS AT THIS TIME. CALL LIGHT WITHIN REACH.
[2021-10-27 06:35] LABS: BASO % 0.3 % (0.0-2.0); EOS # 0.1 K/mm3 (0.0-0.7); EOS % 1.1 % (0.0-4.0); GRAN # 4.6 K/mm3 (1.4-6.5); GRAN % 73.9 % (42.2-75.2); LYMPH % 16.1 % (20.0-51.0); MEAN CELL VOLUME 89 fl (80.0-100.0); MEAN CORPUSCULAR HGB CONC 29 g/dl (33.0-37.0); MEAN PLATELET VOLUME 10.4 fl (7.4-10.4); MONO # 0.5 K/mm3 (0.1-0.6); PLATELET COUNT 214 K/mm3 (130-400); RED BLOOD COUNT 3.69 M/mm3 (4.20-5.60); REDCELL DISTRIBUTION WIDTH-CV 16.2 % (11.5-14.5)
[2021-10-27 06:38] LABS: HEMOGLOBIN 9.6 g/dl (13.5-18.0); MEAN CORPUSCULAR HEMOGLOBIN 26 pg (27-31)
[2021-10-27 06:57] LABS: CALCIUM 8.5 mg/dL (8.4-10.2); CREATININE, serum 1.8 mg/dL (0.72-1.25); POTASSIUM 4.3 mmol/L (3.5-4.5)
[2021-10-27 07:00] VITALS: BP 110/53; PULSE 66; TEMP 98.2
--- NOTE | 2021-10-27 07:00 | NUR ---
Shift assessment complete.Pt resting in bed. Abd round and firm. Bowel sounds active x4. Abd drsg CDI. RADHA drainage to bulb suction with sangious drainage Pt c/o pain 9/10 at incision site. Primary nurse notified. IVF site rt forearm intact, NS infusing @ 125ml/hr.
[2021-10-27 07:06] LABS: INR 1.3 (0.8-3.0); PROTHROMBIN TIME 14.1 SECONDS (9.7-12.8)
[2021-10-27 11:09] VITALS: BP 114/51; PULSE 71; TEMP 98.3
--- NOTE | 2021-10-27 13:30 | NUR ---
PT BROTHER, PRABHJOT, CALLED AND STATES THAT PT HAS HIS HOME MEDS IN HIS ROOM AND HAS BEEN TAKING HIS HYDROCODONE ON HIS OWN. PT WAS ASKED ABOUT THIS AND STATES THAT HE DOES. STATES THAT HE DOES HAVE THEM AND HE HAS TAKEN 2. PT REFUSED TO PUT MEDICATION IN PHARMACY. PT STATES THAT HE WILL SEND THEM HOME WITH HIS . DID COME UP HERE AND THEY WERE SENT HOME WITH HER. DR. RIVERA WAS MADE AWARE OF THE SITUATIONS. VOICED UNDERSTANDING.
[2021-10-27 16:11] VITALS: BP 129/62; PULSE 64; TEMP 98.3
--- NOTE | 2021-10-27 18:32 | NUR ---
PT SITTING UP IN CHAIR WATCHING TABLET. PT IS ON 5LIT VIA [place]. RADHA DRAIN IS COMPRESSED AND DRAINING. ABD DRESSING DOES HAVE A LITTLE BLEEDING NOTED. IT WAS MARKED. BELLY IS NOTED TO BE FIRM. PT STATES THAT HE DOES NOT NEED ANYTHING AT THIS TIME. CALL LIGHT IS WITHIN REACH.
[2021-10-27 19:25] VITALS: BP 126/67; PULSE 74; TEMP 98.2
[2021-10-28 00:18] VITALS: BP 157/68; PULSE 81; TEMP 97.6
[2021-10-28 04:55] VITALS: BP 112/58; PULSE 58; TEMP 97.6
[2021-10-28 06:38] LABS: BASO % 0.3 % (0.0-2.0); EOS # 0.1 K/mm3 (0.0-0.7); EOS % 1.6 % (0.0-4.0); GRAN # 4.4 K/mm3 (1.4-6.5); GRAN % 70.9 % (42.2-75.2); LYMPH # 1.1 K/mm3 (1.2-3.4); LYMPH % 18.2 % (20.0-51.0); MEAN CELL VOLUME 91 fl (80.0-100.0); MEAN CORPUSCULAR HEMOGLOBIN 27 pg (27-31); MEAN CORPUSCULAR HGB CONC 29 g/dl (33.0-37.0); MEAN PLATELET VOLUME 10.4 fl (7.4-10.4); MONO # 0.5 K/mm3 (0.1-0.6); MONO % 7.9 % (1.7-9.3); PLATELET COUNT 238 K/mm3 (130-400); RED BLOOD COUNT 3.75 M/mm3 (4.20-5.60); REDCELL DISTRIBUTION WIDTH-CV 16.1 % (11.5-14.5)
[2021-10-28 07:00] VITALS: BP 91/53; PULSE 66; TEMP 98.1
--- NOTE | 2021-10-28 07:00 | NUR ---
Shift assessment complete, pt alert resting in bed. Abdomen firm, round x4 audible bowel sounds and passing flatus. Abdominal ABD drsg, marked sangious drainage. RADHA drain to bulb suction with serosangious drainage with small amount. Pt reports incisional pain 5/10 at rest, 7/10 during movement. IV site to rt forearm patent, NS infusing at 125ml/hr.
[2021-10-28 07:32] LABS: HEMATOCRIT 34.2 % (42.0-52.0)
--- NOTE | 2021-10-28 09:00 | NUR ---
Shift assessment complete and reviewed documentation of student nurse's assessment and agree. Pt's main complaint is pain to incisions, worse w/movement. Rates at 5/10 now. Scheduled tramadol given. RADHA drain emptied by student w/15 ccs sanguinous drainage. Abdomen firm and distended though pt reports this is his baseline. Denies needs. Continuing to monitor.
[2021-10-28 11:03] VITALS: BP 133/81; PULSE 77; TEMP 98.2
[2021-10-28] MEDS ORDERED: CIPRO 500MG TA500 MG PO (11:29)
--- NOTE | 2021-10-28 11:55 | NUR ---
Discharge instructions discussed w/pt and and all questions answered. IV to right forearm removed w/tip intact. Pt escorted out in wheelchair w/all belongings.
== END 2021-10-28 12:00 | disposition home or self-care (01) | DRG 908 ==
LOC: COL.ER 21:52 → MEDICAL 10-26 01:44
PROVIDERS: Emergency Medicine; ADMIT Surgery
PROC: 0J9800Z Drainage of Abdomen Subcutaneous Tissue and Fascia with Drainage Device, Open Approach (ICD-10-PCS; 2021-10-26)
PROC: 0JC80ZZ Extirpation of Matter from Abdomen Subcutaneous Tissue and Fascia, Open Approach (ICD-10-PCS; principal; 2021-10-26 14:00)
DX: L76.32 Postprocedural hematoma of skin and subcutaneous tissue following other procedure (principal); T81.31XA Disruption of external operation (surgical) wound, not elsewhere classified, initial encounter; N18.30 Chronic kidney disease, stage 3 unspecified; E11.22 Type 2 diabetes mellitus with diabetic chronic kidney disease; E78.5 Hyperlipidemia, unspecified; J44.9 Chronic obstructive pulmonary disease, unspecified; G89.29 Other chronic pain; M54.9 Dorsalgia, unspecified; M43.10 Spondylolisthesis, site unspecified; M19.90 Unspecified osteoarthritis, unspecified site; F32.A Depression, unspecified; G47.00 Insomnia, unspecified; N40.0 Benign prostatic hyperplasia without lower urinary tract symptoms; Y83.8 Other surgical procedures as the cause of abnormal reaction of the patient, or of later complication, without mention of misadventure at the time of the procedure; Z96.652 Presence of left artificial knee joint; Z79.84 Long term (current) use of oral hypoglycemic drugs; Z23 Encounter for immunization
CPT/HCPCS: J0330; J0690; J1170; J2270; J2405; J2543; J2704; J2710; J3010; J3370; J7030; J7040

== ENCOUNTER → 2023-04-01 | Outpatient (CLI) | payer MEDICARE, OTHER ==
[~2023-04-01] MED LIST changes: +ATIVAN 1MG T1 MG/TAB PO; +CIPRO 500MG TA500 MG PO; +DESYREL 100MG100 MG PO; +DOXYCYCLINE 50M50 MG PO; +ELIQUIS 5MG PO; +JARDIANCE25 PO; +LYRICA 75MG CAP75 MG PO; +PREDFORTE5ML OP; +SEROQUEL 1100 MG/TAB PO
== END ==
LOC: COL.RAD 09:51
DX: N28.1 Cyst of kidney, acquired (principal); Z85.520 Personal history of malignant carcinoid tumor of kidney

== ENCOUNTER → 2023-07-29 | Outpatient (CLI) | payer MEDICARE, OTHER ==
[~2023-07-29] MED LIST changes: +Ketorolac 30 MG/ML VIAL ONE; +Lidocaine PF 1% (10 MG/ML) 5 ML VIAL ONE
== END ==
LOC: MHCPAIN 11:32
DX: M76.72 Peroneal tendinitis, left leg (principal); M79.18 Myalgia, other site
CPT/HCPCS: J1885

== ENCOUNTER → 2023-09-05 | Outpatient (CLI) | payer MEDICARE, OTHER ==
[~2023-09-05] MED LIST changes: -Ketorolac 30 MG/ML VIAL ONE; -Lidocaine PF 1% (10 MG/ML) 5 ML VIAL ONE
== END ==
LOC: MHCPAIN 13:08
DX: M25.571 Pain in right ankle and joints of right foot (principal); M76.72 Peroneal tendinitis, left leg; M79.2 Neuralgia and neuritis, unspecified; Z98.1 Arthrodesis status
CPT/HCPCS: G0463

== ENCOUNTER → 2023-10-18 | Outpatient (CLI) | payer MEDICARE, OTHER | LOC: MHCPAIN 13:24 | DX: M25.572 Pain in left ankle and joints of left foot (principal); M76.72 Peroneal tendinitis, left leg; M79.2 Neuralgia and neuritis, unspecified; Z98.1 Arthrodesis status | CPT/HCPCS: G0463 ==

== ENCOUNTER → 2023-11-23 | Outpatient (CLI) | payer MEDICARE, OTHER ==
[~2023-11-23] MED LIST changes: +Ketorolac 30 MG/ML VIAL ONE; +Lidocaine PF 1% (10 MG/ML) 5 ML VIAL ONE
== END ==
LOC: MHCPAIN 14:18
DX: M76.72 Peroneal tendinitis, left leg (principal); M79.2 Neuralgia and neuritis, unspecified
CPT/HCPCS: J1885

== ENCOUNTER → 2024-01-24 | Outpatient (CLI) | payer MEDICARE, OTHER ==
[~2024-01-24] MED LIST changes: -Ketorolac 30 MG/ML VIAL ONE; -Lidocaine PF 1% (10 MG/ML) 5 ML VIAL ONE
== END ==
LOC: MHCPAIN 11:17
DX: M76.72 Peroneal tendinitis, left leg (principal); M79.2 Neuralgia and neuritis, unspecified; M25.372 Other instability, left ankle; Z98.1 Arthrodesis status
CPT/HCPCS: G0463

== ENCOUNTER 2024-05-09 11:20 | Emergency (ER) | payer MEDICARE, OTHER ==
[~2024-05-09] VITALS: Ht 157.5 cm; Wt 111.4 kg
[2024-05-09 11:31] VITALS: TEMP 98.2
[2024-05-09] MEDS ORDERED: ELIQUIS 5MG PO (15:05)
[2024-05-09 15:21] VITALS: BP 124/70; PULSE 74
== END 2024-05-09 15:21 | disposition home or self-care (01) ==
LOC: COL.ER 11:20
DX: I82.621 Acute embolism and thrombosis of deep veins of right upper extremity (principal)